=== PATIENT | female | born 1990 | race Caucasian/White ===

== ENCOUNTER 2023-05-31 18:36 | Emergency (ER) | payer MEDICAID, SELFPAY ==
[2023-05-31 18:48] VITALS: BP 123/91; PULSE 86; RESP 18; TEMP 36.6; O2SAT 98; BMI 29.6
--- NOTE | 2023-05-31 21:32 | ED.GENADUL1 ---
Documented by User: RO Tim 05/31/23 21:57 HPI - General Adult General Chief complaint: Abdominal Pain Stated complaint: OBJECT ISERTED VAGINALLY Time Seen by Provider: 05/31/23 19:38 Source: patient Mode of arrival: walk-in Limitations: no limitations History of Present Illness HPI narrative: Patient is a 32-year-old female who presents to the emergency department for the evaluation of pelvic discomfort and pressure. 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 She is not sure what might be in her vagina. She has had no fevers, chills, vomiting. She does not believe she is . She has a history of oral herpes simplex, she is unsure if she may have concern for other STD exposure. She has not had any significant bleeding. No medications taken prior to arrival. She states when she has bowel movements she feels pressure in the pelvis. Related Data Previous Rx's Medication Instructions Recorded doxycycline hyclate 100 mg capsule 100 mg PO BID 10 days #20 caps 05/31/23 Allergies Allergy/AdvReac Type Severity Reaction Status Date / Time No Known Drug Allergies Allergy Verified 05/31/23 18:52 Review of Systems ROS Constitutional Denies: fever or chills Ears, nose, mouth, and throat Denies: throat pain or nasal congestion Cardiovascular Denies: chest pain Respiratory Denies: shortness of breath Gastrointestinal Reports: abdominal pain; Denies: nausea, vomiting or diarrhea Genitourinary Reports: pelvic pain; Denies: painful urination Musculoskeletal Denies: back pain or neck pain Integumentary/Breast Denies: rash Neurological Denies: headache Hematologic/Lymphatic Denies: easy bruising Exam Narrative Exam Narrative: Gen.: Awake, alert, in no distress Head: Normocephalic, atraumatic ENT: Moist mucous membranes Respiratory: No respiratory distress Gastrointestinal: Abdomen is soft, nondistended and nontender to palpation; no McBurney's tenderness or pain out of proportion on exam. No guarding or rebound : Speculum exam performed with Carolina Ontiveros RN at bedside throughout the duration of the exam. Speculum is fully visualized, minimal discharge from the cervix. There is no visualized foreign body, small condyloma noted in the perirectal area. No vesicles or drainage. Pelvic cultures obtained, no cervical motion tenderness Extremities: Moves extremities equally Psych: Normal mood and affect Neuro: No focal neuro deficit Skin: Warm, dry, intact Constitutional Vital Signs, click to edit/add: Last Vital Signs Temp 97.9 F 05/31/23 18:48 Pulse 86 05/31/23 18:48 Resp 18 05/31/23 18:48 BP 123/91 05/31/23 18:48 Pulse Ox 98 05/31/23 18:48 O2 Del Method Room Air 05/31/23 18:48 Course Vital Signs Vital signs: Vital Signs Temperature 97.9 F 05/31/23 18:48 Pulse Rate 86 05/31/23 18:48 Respiratory Rate 18 05/31/23 18:48 Blood Pressure 123/91 05/31/23 18:48 Pulse Oximetry 98 05/31/23 18:48 Oxygen Delivery Method Room Air 05/31/23 18:48 Temperature 97.9 F 05/31/23 18:48 Pulse Rate 86 05/31/23 18:48 Respiratory Rate 18 05/31/23 18:48 Blood Pressure 123/91 05/31/23 18:48 Pulse Oximetry 98 05/31/23 18:48 Oxygen Delivery Method Room Air 05/31/23 18:48 Medical Decision Making [facility] Narrative Medical decision making narrative: 2154: Pelvic exam performed with no evidence of foreign body, cervix is fully visualized and pelvic cultures obtained. Patient sent for urine specimen and she would like to be treated for possible STD exposure, she is given oral doxycycline and Flagyl in the ER with intramuscular Rocephin. Urine specimen is pending and case is turned over to attending physician. Medical Records Medical records reviewed: Yes I reviewed the patient's medical records Lab Data Lab results reviewed: Yes I reviewed the patient's lab results Labs: Lab Results 05/31/23 Range/Units 21:27 Urine Color Lt. yellow (YELLOW) Urine Clarity Clear (CLEAR) Urine pH 7.0 (5.0-9.0) Ur Specific [place] 1.010 (1.005-1.025) Urine Protein Negative (NEG/TRACE) mg/dL Urine Glucose (UA) Negative (NEGATIVE) mg/dL Urine Ketones Negative (NEGATIVE) mg/dL Urine Occult Blood Small A (NEGATIVE) Urine Nitrite Negative (NEGATIVE) Urine Bilirubin Negative (NEGATIVE) Urine Urobilinogen 0.2 (0.2-1.0) EU/dL Ur Leukocyte Esterase Negative (NEGATIVE) Urine RBC 0-2 (0-2) #/HPF Urine WBC 0-2 A (NONE SEEN) #/HPF Ur Squamous Epith Cells Moderate A (NONE/RARE) #/LPF Ur Transition Epith Cell Moderate A (NONE SEEN) #/LPF Urine Crystals None seen (None Seen) #/HPF Urine Bacteria None seen (NONE SEEN) #/HPF Urine Casts None seen (NONE SEEN) #/LPF Urine Mucus None seen (NONE SEEN) Ur Culture Indicated? No Urine HCG, Qual Negative (NEGATIVE) Discharge Plan Discharge Chief Complaint: Abdominal Pain Clinical Impression: Pelvic pain, Constipation Patient Disposition: Home, Self-Care Time of Disposition Decision: 22:54 Condition: Good Mode of Transportation: Private Vehicle Prescriptions / Home Meds: New doxycycline hyclate 100 mg capsule 100 mg PO BID 10 Days Qty: 20 0RF Instructions: Constipation (ED), Pelvic Pain in Women (ED) Stand Alone Forms: Portal Instructions Referrals: Physician,Non-Staff, [Primary Care Provider] - 1 week Documented by User: Omar Godwin MD 05/31/23 22:56 HPI - General Adult General Chief complaint: Abdominal Pain Stated complaint: OBJECT ISERTED VAGINALLY Time Seen by Provider: 05/31/23 19:38 Related Data Previous Rx's Medication Instructions Recorded doxycycline hyclate 100 mg capsule 100 mg PO BID 10 days #20 caps 05/31/23 Allergies Allergy/AdvReac Type Severity Reaction Status Date / Time No Known Drug Allergies Allergy Verified 05/31/23 18:52 Exam Constitutional Vital Signs, click to edit/add: Last Vital Signs Temp 97.9 F 05/31/23 18:48 Pulse 86 05/31/23 18:48 Resp 18 05/31/23 18:48 BP 123/91 05/31/23 18:48 Pulse Ox 98 05/31/23 18:48 O2 Del Method Room Air 05/31/23 18:48 Course Vital Signs Vital signs: Vital Signs Temperature 97.9 F 05/31/23 18:48 Pulse Rate 86 05/31/23 18:48 Respiratory Rate 18 05/31/23 18:48 Blood Pressure 123/91 05/31/23 18:48 Pulse Oximetry 98 05/31/23 18:48 Oxygen Delivery Method Room Air 05/31/23 18:48 Temperature 97.9 F 05/31/23 18:48 Pulse Rate 86 05/31/23 18:48 Respiratory Rate 18 05/31/23 18:48 Blood Pressure 123/91 05/31/23 18:48 Pulse Oximetry 98 05/31/23 18:48 Oxygen Delivery Method Room Air 05/31/23 18:48 Medical Decision Making MDM Narrative Medical decision making narrative: 2154: Pelvic exam performed with no evidence of foreign body, cervix is fully visualized and pelvic cultures obtained. Patient sent for urine specimen and she would like to be treated for possible STD exposure, she is given oral doxycycline and Flagyl in the ER with intramuscular Rocephin. Urine specimen is pending and case is turned over to attending physician. 10:55 PM x-ray KUB on my dictation shows constipation and she was given Dulcolax. She is being prescribed doxycycline and was given Flagyl and Rocephin here. Treatment diagnosis and follow-up were discussed with the patient. Differential Diagnosis Differential Diagnosis: constipation, STD, urinary tract infection Lab Data Labs: Lab Results 05/31/23 Range/Units 21:27 Urine Color Lt. yellow (YELLOW) Urine Clarity Clear (CLEAR) Urine pH 7.0 (5.0-9.0) Ur Specific [place] 1.010 (1.005-1.025) Urine Protein Negative (NEG/TRACE) mg/dL Urine Glucose (UA) Negative (NEGATIVE) mg/dL Urine Ketones Negative (NEGATIVE) mg/dL Urine Occult Blood Small A (NEGATIVE) Urine Nitrite Negative (NEGATIVE) Urine Bilirubin Negative (NEGATIVE) Urine Urobilinogen 0.2 (0.2-1.0) EU/dL Ur Leukocyte Esterase Negative (NEGATIVE) Urine RBC 0-2 (0-2) #/HPF Urine WBC 0-2 A (NONE SEEN) #/HPF Ur Squamous Epith Cells Moderate A (NONE/RARE) #/LPF Ur Transition Epith Cell Moderate A (NONE SEEN) #/LPF Urine Crystals None seen (None Seen) #/HPF Urine Bacteria None seen (NONE SEEN) #/HPF Urine Casts None seen (NONE SEEN) #/LPF Urine Mucus None seen (NONE SEEN) Ur Culture Indicated? No Urine HCG, Qual Negative (NEGATIVE) Imaging Data Abdominal x-ray: My impression: constipation Discharge Plan Discharge Chief Complaint: Abdominal Pain Clinical Impression: Pelvic pain, Constipation Patient Disposition: Home, Self-Care Time of Disposition Decision: 22:54 Condition: Good Mode of Transportation: Private Vehicle Prescriptions / Home Meds: New doxycycline hyclate 100 mg capsule 100 mg PO BID 10 Days Qty: 20 0RF Instructions: Constipation (ED), Pelvic Pain in Women (ED) Stand Alone Forms: Portal Instructions Referrals: Physician,Non-Staff, MD [Primary Care Provider] - 1 week
[2023-05-31] MEDS: ONDANSETRON 4 MG RAPDIS TABLET SL (21:49)
[2023-05-31] MEDS: DOXYCYCLINE MONOHYDRATE 100 MG CAPSULE PO (21:49)
[2023-05-31] MEDS: METRONIDAZOLE 250 MG TABLET 2000 MG PO (21:50)
[2023-05-31] MEDS: CEFTRIAXONE 500 MG, LIDOCAINE HCL/PF 1 ML IM (21:51)
[2023-05-31 22:04] LABS: HCG Qualitative Urine* NEGATIVE (NEGATIVE)
[2023-05-31 22:12] LABS: Bilirubin Urine NEGATIVE (NEGATIVE); Blood Urine SMALL (NEGATIVE); Clarity Urine CLEAR (CLEAR); Color Urine LT. YELLOW (YELLOW); Glucose Urine UA NEGATIVE (NEGATIVE); Ketones Urine NEGATIVE (NEGATIVE); Leukocyte Esterase Urine NEGATIVE (NEGATIVE); Nitrite Urine NEGATIVE (NEGATIVE); Protein Urine NEGATIVE (NEG/TRACE); Urobilinogen Urine 0.2 EU/dL (0.2-1.0)
[2023-05-31 22:13] LABS: Urine Microscopic Indicated YES
[2023-05-31 22:19] LABS: Bacteria Urine NONE SEEN #/HPF (NONE SEEN); RBC Urine 0-2 #/HPF (0-2); WBC Urine 0-2 #/HPF (NONE SEEN)
[2023-05-31 22:20] LABS: Cast Seen? NONE SEEN #/LPF (NONE SEEN); Crystals Seen? None Seen #/HPF (None Seen); Mucus Urine NONE SEEN (NONE SEEN); Squamous Epithelial Cell Urine MODERATE #/LPF (NONE/RARE); Transitional Epi Cells Urine MODERATE #/LPF (NONE SEEN); Urine Culture Indicated NO
--- NOTE | 2023-05-31 22:23 | XR_ITS ---
The [address] [address] Patient Name: JOSE LUIS GREEN MRN: [id number] date: 1990 Sex: F Assigned Patient Location: ER Current Patient Location: ED.MAIN Accession/Order Number: [id number] Exam Date: 05/31/2023 22:36 Report Date: 05/31/2023 23:16 At the request of: EVELYN KEN Procedure: XR abdomen 1V EXAM: PLAIN FILM OF THE ABDOMEN HISTORY: Constipation with last bowel movement within 7 days ago. Negative test. COMPARISON: None. TECHNIQUE: 1 view of the abdomen/pelvis submitted for review. FINDINGS: Lines and Tubes: None. Free air: None. The bowel gas pattern is nonobstructive. Moderate retention of stool. There are no abnormal calcifications. However, evaluation of the renal shadows is limited due to overlying bowel gas. No portal venous air. Osseous structures do not demonstrate any acute abnormality. XR/XR abdomen 1V IMPRESSION: 1. Nonobstructive bowel gas pattern. 2. Moderate retention of stool. Electronically authenticated by: SHEKHAR MILLER Date: 05/31/2023 23:16
[2023-05-31] MEDS: BISACODYL 5 MG TABLET 10 MG PO (23:18)
[2023-06-05 07:09] LABS: Neisseria gonorrhoeae, NAA Negative (Negative)
== END 2023-05-31 23:22 | disposition home or self-care (01) ==
PROVIDERS: Physician Assistant; Emergency Provider Emergency Medicine
DX: K59.00 Constipation, unspecified (principal); R10.2 Pelvic and perineal pain
CPT/HCPCS: 74018; 81001; 84703; 87210; 87491; 87591; 96372; 99285